=== PATIENT | male | born 1970 | race Hispanic/Latino ===

== ENCOUNTER 2020-12-17 08:24 | Day surgery (SDC) | payer SELFPAY ==
[2020-12-17] MEDS ORDERED: Ringers Lactate 1,000 ML IV ONE ×2 (08:55→10:49)
[2020-12-17] MEDS ORDERED: propofoL 200 MG/20 ML VIAL IV ONE (09:42)
[2020-12-17] MEDS ORDERED: MIDAZOLAM HCL 2 MG/2 ML INJ ONE (09:42)
[2020-12-17] MEDS ORDERED: LIDOCAINE 2% MPF 5 ML VIAL ONE (09:43)
[2020-12-17] MEDS ORDERED: FENTANYL CITR 100 MCG/2 ML ONE ×2 (09:43→10:09)
[2020-12-17] MEDS ORDERED: CEFAZOLIN/SWI 1gm 1 GM/10 ML SYR ONE (09:47)
--- NOTE | 2020-12-17 10:14 | P.BOP ---
Preoperative diagnosis: tender umbilical hernia Postoperative diagnosis: same Primary procedure: Open repair of tender umbilical hernia Avionics Test Technician: Silvina Licea) Estimated blood loss: <10cc Specimen: hernia sac Findings: umbilical hernia Anesthesia: General Complications: None Transferred to: Recovery Room Condition: Good
[2020-12-17] MEDS ORDERED: dexAMETHasone 10 MG/ML VIAL ONE (10:26)
[2020-12-17] MEDS ORDERED: KETOROLAC 30 MG/ML INJ ONE (10:26)
[2020-12-17] MEDS ORDERED: ONDANSETRON 4 MG/2 ML VIAL ONE ×2 (10:26→11:00)
[2020-12-17] MEDS: HYDROMORPHONE HCL 1 MG/ML INJ ONE ×2 (10:45→10:50)
[2020-12-17 12:34] VITALS: BP 133/82; TEMP 96.2; O2SAT 98
--- NOTE | 2020-12-17 20:52 | OP ---
Date of Procedure: 12/17/2020 Surgeon: Ari Martinez MD Preoperative Diagnoses: Periumbilical tenderness, periumbilical mass, periumbilical hernia, morbid o besity. Postoperative Diagnoses: Periumbilical tenderness, periumbilical mass, periumbilical hernia, morbid obesity, incarcerated umbilical hernia. Procedure: Open repair. Anesthesia: General plus local. Indications For Surgery: This is the case of a 50-year-old patient comes to us with periumbilical te nderness right at the center of the umbilical area with a lump in that region. The imaging did not s how properly the etiology of this pain. It felt like a hernia and could be a mass or cyst. The bene fits, alternatives, and risks of umbilical hernia repair or possible mass removal fully explained to the patient which include, but not limited to infection, bleeding, damage to adjacent structures, ane sthesia complication, recurrence, PA and even . He also understands this may not relieve any sy mptoms. He might need more than one surgical intervention. He understood, signed a consent. He und erstands also the importance of losing weight. He signed a consent. Procedure In Detail: The patient was brought to the operating room, placed in supine position. Anes thesia was done without complication. A time-out was called. Abdomen was prepped and draped in a st erile fashion. An incision was made in the periumbilical region after injecting local anesthetic. I ncision was carried down to deep subcutaneous tissue. He is morbidly obese, so is the deep umbilical area. At the end of that, we noticed the patient to have an umbilical sac. We disconnected umbilic al skin from umbilical sac. We removed the umbilical sac. We noticed to have a small amount of inca rcerated omentum in that area, but after removing some adhesions, we were able to reduce it after ful l inspection. There was a small defect in the fascia, so we clean the fascia edges. We proceeded to close the area with #1 Prolene in a gpdaol-dl-asqeo fashion. The area was irrigated. Subcutaneous tissue closed and umbilical area was put back together with a combination of 0 chromic and 3-0 chromi c. Steri-Strips placed over the area. The patient tolerated the procedure well. Hemostasis was obt ained before closure. The patient is awake to Recovery in stable condition. /MODL Voice ID: [id number] Report ID: [id number]
--- NOTE | 2020-12-17 20:58 | DS ---
Date of Discharge: 12/17/2020 Diagnoses: Umbilical hernia, morbid obesity. Procedure Performed: Open repair of umbilical hernia. Disposition: Home. Activity: As tolerated. No heavy lifting. Plan: Follow up in my office in 1 week. Call for appointment at [phone]. Keep area dry for 48 sudha rs, then may shower. Keep Steri-Strips intact. The patient was advised the importance of losing franck ght and also counseled about smoking cessation. TINO/SOL Voice ID: [id number] Report ID: [id number]
== END 2020-12-17 11:53 | disposition home or self-care (01) ==
LOC: OR 08:24
PROVIDERS: ATTEND Surgery
PROC: 0WQF0ZZ Repair Abdominal Wall, Open Approach (ICD-10-PCS; principal; 2020-12-17 10:30)
DX: K42.9 Umbilical hernia without obstruction or gangrene (principal); E66.01 Morbid (severe) obesity due to excess calories; Z20.822 Contact with and (suspected) exposure to COVID-19
CPT/HCPCS: 49587; 93005; 88302; U0003; J2704; J2250; J3010 ×2; J1100; J1170; J0690; J7120 ×2; J2405 ×2

== ENCOUNTER 2021-08-18 13:33 | Emergency (ER) | payer SELFPAY ==
--- NOTE | 2021-08-18 14:11 | ER ---
Nurse's Notes [facility] Name: Ti Dobbins Age: 51 yrs Sex: Male : 1970 Arrival Date: 08/18/2021 Time: 13:34 Bed Treatment Private MD: Diagnosis: Sciatica, left side Presentation: 08/18 13:51 Chief complaint: Patient states: Pain to L buttock that radiates down L leg that began ss yesterday. Denies injury. Coronavirus screen: Client denies travel out of the [place] in the last 14 days. Ebola Screen: Patient denies exposure to infectious person. Patient denies travel to an Ebola-affected area in the 21 days before illness onset. Initial Sepsis Screen: Does the patient meet any 2 criteria? No. Patient's initial sepsis screen is negative. Does the patient have a suspected source of infection? No. Patient's initial sepsis screen is negative. Risk Assessment: Do you want to hurt yourself or someone else? Patient reports no desire to harm self or others. Onset of symptoms was August 17, 2021. 13:51 Method Of Arrival: Ambulatory ss 13:51 Acuity: DENAE 4 ss Historical: - Allergies: 13:52 No Known Allergies; ss - Home Meds: 13:52 None [Active]; ss - PMHx: 13:52 Hypertensive disorder; ss - PSHx: 13:52 hernia repair; ss - Immunization history:: Client reports having NOT received the Covid vaccine. - Social history:: Smoking status: Patient reports the use of cigarette tobacco products, smokes one pack cigarettes per day. Screenin:11 Abuse screen: Denies threats or abuse. Denies injuries from another. Nutritional ss screening: No deficits noted. Tuberculosis screening: Never had TB. Fall Risk None identified. Assessment: 14:11 General: Appears in no apparent distress. comfortable, Behavior is calm, cooperative. ss Pain: Complains of pain in left gluteus weston Pain radiates to left leg Pain currently is 8 out of 10 on a pain scale. Pain began 1 day ago. Is continuous. Neuro: Level of Consciousness is awake, alert, obeys commands, Oriented to person, place, time, situation. Cardiovascular: Capillary refill < 3 seconds is brisk in bilateral fingers. Respiratory: Airway is patent Respiratory effort is even, unlabored, Respiratory pattern is regular, symmetrical. GI: No signs and/or symptoms were reported involving the gastrointestinal system. : No signs and/or symptoms were reported regarding the genitourinary system. Derm: Skin is intact, is healthy with good turgor, Skin is dry, Skin is pink, warm \T\ dry. normal. Musculoskeletal: Circulation, motion, and sensation intact. Range of motion: intact in all extremities, Swelling absent. Vital Signs: 13:52 BP 167 / 99; Pulse 84; Resp 18; Temp 97.4(TE); Pulse Ox 97% on R/A; Weight 122.47 kg; ss Height 5 ft. 4 in. (162.56 cm); Pain 8/10; 13:52 Body Mass Index 46.34 (122.47 kg, 162.56 cm) ss ED Course: 13:34 Patient arrived in ED. as 13:52 Triage completed. ss 13:52 Arm band placed on right wrist. ss 13:55 [facility] Dev[facility]-C [facility]. kb 13:55 Rubin Romero MD is Attending Physician. kb 14:11 Barbara Garcia, ESTEE is Primary Nurse. ss 14:11 Patient has correct armband on for positive identification. Bed in low position. Call ss light in reach. 14:11 No provider procedures requiring assistance completed. Patient did not have IV access ss during this emergency room visit. Administered Medications: No medications were administered Outcome: 14:10 Discharge ordered by . kb 14:11 Discharged to home ambulatory. ss 14:11 Condition: good 14:11 Discharge instructions given to patient, Instructed on discharge instructions, follow up and referral plans. medication usage, Demonstrated understanding of instructions, follow-up care, medications, Prescriptions given X 2. 14:19 Patient left the ED. ss Signatures: Lauren Devries FNP-C FNP-Mariposa Trejo as Barbara Garcia, ESTEE RN ss
--- NOTE | 2021-08-18 14:11 | EDPHYS ---
Physician Documentation [facility] Name: Ti Dobbins Age: 51 yrs Sex: Male : 1970 Arrival Date: 08/18/2021 Time: 13:34 Bed Treatment Private MD: ED Physician Rubin Romero HPI: 08/18 15:09 This 51 yrs old Male presents to ER via Ambulatory with complaints of Leg Pain.kb 15:09 The patient presents with pain, tenderness. The complaints affect the left gluteus kb weston. Context: The problem was sustained at home, resulted from an unknown cause, the patient can fully bear weight, the patient is able to ambulate. Onset: The symptoms/episode began/occurred yesterday. Modifying factors: The symptoms are alleviated by nothing. the symptoms are aggravated by nothing. Associated signs and symptoms: The patient has no apparent associated signs or symptoms. Treatment prior to arrival includes: no previous treatment. Severity of symptoms: At their worst the symptoms were moderate, in the emergency department the symptoms are unchanged. The patient has not experienced similar symptoms in the past. The patient has not recently seen a physician. Pt reports pain to center of left buttock that radiates down back of left leg. States the pain started upon waking yesterday afternoon.. Historical: - Allergies: 13:52 No Known Allergies; ss - Home Meds: 13:52 None [Active]; ss - PMHx: 13:52 Hypertensive disorder; ss - PSHx: 13:52 hernia repair; ss - Immunization history:: Client reports having NOT received the Covid vaccine. - Social history:: Smoking status: Patient reports the use of cigarette tobacco products, smokes one pack cigarettes per day. ROS: 15:08 Constitutional: Negative for fever, chills, and weight loss. kb 15:08 MS/extremity: Positive for pain, of the left gluteus weston. 15:08 All other systems are negative. Exam: 15:08 Constitutional: This is a well developed, well nourished patient who is awake, alert, kb and in no acute distress. Head/Face: Normocephalic, atraumatic. ENT: Moist Mucous membranes Respiratory: Respirations even and unlabored. No increased work of breathing, no retractions or nasal flaring. Skin: Warm, dry with normal turgor. Normal color. Neuro: Awake and alert, GCS 15, oriented to person, place, time, and situation. Moves all extremities. Normal gait. Psych: Awake, alert, with orientation to person, place and time. Behavior, mood, and affect are within normal limits. 15:08 Musculoskeletal/extremity: Extremities: grossly normal except: noted in the left gluteus weston: pain, tenderness, ROM: intact in all extremities, Circulation is intact in all extremities. Sensation intact. Weight bearing: able to fully bear weight. Vital Signs: 13:52 BP 167 / 99; Pulse 84; Resp 18; Temp 97.4(TE); Pulse Ox 97% on R/A; Weight 122.47 kg; ss Height 5 ft. 4 in. (162.56 cm); Pain 8/10; 13:52 Body Mass Index 46.34 (122.47 kg, 162.56 cm) ss MDM: 13:55 Patient medically screened. kb 15:08 Data reviewed: vital signs, nurses notes. Data interpreted: Pulse oximetry: on room air kb is 97 %. Interpretation: normal. Counseling: I had a detailed discussion with the patient and/or guardian regarding: the historical points, exam findings, and any diagnostic results supporting the discharge/admit diagnosis, the need for outpatient follow up, a family practitioner, to return to the emergency department if symptoms worsen or persist or if there are any questions or concerns that arise at home. Administered Medications: No medications were administered Disposition: 15:28 Co-signature as Attending Physician, Rubin Romero MD. rn Disposition Summary: 08/18/21 14:10 Discharge Ordered Location: Home kb Condition: Stable kb Diagnosis - Sciatica, left side kb Followup: kb - With: Emergency Department - When: As needed - Reason: Worsening of condition Followup: kb - With: Private Physician - When: 2 - 3 days - Reason: Recheck today's complaints, Continuance of care, Re-evaluation by your physician Discharge Instructions: - Discharge Summary Sheet kb - Sciatica, [id number]-zw-Ojvz kb Forms: - Medication Reconciliation Form kb - Thank You Letter kb - Antibiotic Education kb - Prescription Opioid Use kb - Work release form ss Prescriptions: - Prednisone 20 mg Oral Tablet - take 1 tablet by ORAL route once daily for 5 days; 5 tablet; Refills: 0, kb Product Selection Permitted - Cyclobenzaprine 10 mg Oral Tablet - take 1 tablet by ORAL route every 8 hours As needed; 30 tablet; Refills: 0, kb Product Selection Permitted Signatures: Lauren Devries, [employer]AN[employer]-Rubin Mitchell MD MD rn Barbara Garcia RN RN ss
[2021-08-18 14:51] VITALS: BP 167/99; TEMP 97.4; O2SAT 97
== END 2021-08-18 14:19 | disposition home or self-care (01) ==
LOC: ER 13:33
DX: M54.32 Sciatica, left side (principal); I10 Essential (primary) hypertension; F17.210 Nicotine dependence, cigarettes, uncomplicated
CPT/HCPCS: 99282

== ENCOUNTER 2025-06-27 21:13 | Emergency (ER) | payer BC, OTHER, SELFPAY ==
--- OUTSIDE RECORDS SUMMARY | 2025-06-27 21:16 | XMS REPORT | Continuity of Care Document ---
Author Name Unknown Address [address] [facility] [address] [place] [address] [facility] Address [address] [facility] [facility] [place] [address] Care Team Providers Care Special Services Director Name Role Phone UNIT, CHAYITO Primary Care Physician Unavailab JABIER Riddle Attending Clinician Unavailable JABIER COKER Attending Clinician Unavailable Marie Salmeron PA-C Attending Clinician [phone] Bibiana Fabian Attending Clinician Amanda Neely Attending Clinician Unavail able JABIER COKER Admitting Clinician Unavailable KARO YANCEY Admitting Clinician Unavailable Payers Payer Name Policy Type Policy Number Effective Date Expirati on Date Source HIM [facility] [employer] O [id number] 2024 00:00:00 TDCJ [id number] 2013 00:00:00 2018 00:00:00 Allergies, Adverse Reactions, Alerts Allergy Name Allergy Type Status Severity Reaction(s) Onset Date Inactive Date Treating Clinician Comments Source No Known Drug Allergie s DA Active U 05-02 00:00: 00 MAYELIN schuler [facility] NO KNOWN ALLERGIE S Drug Class Active [facility] Social History Social Habit Start Date Stop Date Quantity Comments Source Sexual orientation [facility] Alcoholic beverage intake 2013-08-02 00:00:00 2013-08-02 00:00:00 Current non-drinker of alcohol (finding) [facility] Tobacco Comment 2013-04-01 00:00:00 2013-04-01 00:00:00 marijuana [facility] Cigarettes smoked current (pack per day) - Reported 2013-04-01 00:00:00 2013-04-01 00:00:00 [facility] Cigarette pack-years 2013-04-01 00:00:00 2013-04-01 00:00:00 [facility] Tobacco use and exposure 2013-04-01 00:00:00 2013-04-01 00:00:00 Former smokeless tobacco user [facility] History of tobacco use 1984-04-01 00:00:00 2004-04-01 00:00:00 User of smokeless tobacco [facility] Sex assigned at 1970 00:00:00 1970 00:00:00 [facility] Smoking Status Start Date Stop Date Source Ex-smoker 2013-04-01 00:00:00 2013-04-01 00:00:00 [facility] Medications Ordered Medication Name Filled Medication Name Start Date Stop Date Current Medication? Ordering Clinician Indication Dosage Frequency Signature (SIG) Comments Components Source traMADoL (ULTRAM) tablet 50 mg 2024-09 16:30: 00 06-20 15:53 :00 No 50mg 50 mg, Oral, ONCE NOW, 1 dose, On Thu06/20/25 at 1130, Routine [facility] benzonatate 100 mg capsule 2024-09 00:00: 00 Yes [id number] 100mg Take 1 capsule by mouth 3 times daily as needed for Cough. [facility] traMADoL 50 mg tablet 2024-09 00:00: 00 06-28 04:59 :00 Yes [id number] 50mg Take 1 tablet by mouth every 8 hours as needed for Pain (scale 7-10) for up to 7 days. [facility] flunisolide (NASALIDE) 25 mcg (0.025 %) [place] nasal spray 10-18 00:00: 00 Yes 2{spray } Use 2 Sprays in each nostril every morning and evening. [facility] ibuprofen (MOTRIN) 400 mg tablet 2012-09 00:00: 00 Yes 400mg Take 1 Tab by mouth every 6 (six) hours as needed (for dhoulder pain). [facility] Vital Signs Vital Name Observation Time Observation Value Comments S ource Systolic blood pressure 2025-06-20 17:39:00 150 mm[Hg] [facility] Diastolic blood pressure 2025-06-20 17:39:00 98 mm[Hg] [facility] Heart rate 2025-06-20 17:39:00 75 /min [facility] Body temperature 2025-06-20 17:39:00 36.83 Luanne [facility] Respiratory rate 2025-06-20 17:39:00 18 /min [facility] Oxygen saturation in Arterial blood by Pulse oximetry 2025-06-20 17:39:00 99 /min [facility] Body height 2025-06-20 14:48:00 165.1 cm [facility] Body weight 2025-06-20 14:48:00 124.286 kg [facility] BMI 2025-06-20 14:48:00 45.60 kg/m2 [facility] Procedures Procedure Date / Time Performed Performing Clinicia n Source XR RIBS 3 VW RIGHT 2025-06-20 15:54:24 Jabier Coker [facility] Encounters Start Date/Time End Date/Time Encounter Type Admission Type Attending Clinicians Care Facility Care Department Encounter ID Source 2025-06-20 09:50:00 2025-06-20 12:40:00 Emergency X BOLIVAR, JABIER COKER, JABIER [facility] ERT [id number] [facility] 2024-12-19 00:00:00 2025-03-22 11:49:01 Telephone Marie Salmeron [facility] [id number] [facility] 2025-02-24 00:00:00 2025-02-24 08:18:38 Letter (Out) Bibiana Fabian [facility] ([place]) [id number] [facility] 2021-10-11 10:50:00 2021-10-11 10:50:00 Inpatient ANA Neely Amanda [facility] RADI [id number] [address] [facility] [place] 2014-05-30 11:00:00 2014-05-30 11:00:00 Outpatient R [facility] [id number] [facility] Results Test Description Test Time Test Comments Results Resul t Comments Source XR Ribs 3 vw right 7 17:23:31 ORDERING PHYSICIAN: JABIER COKER CLINICAL HISTORY:cough, R rib pain TECHNIQUE:PA chest radiograph. Multiple AP and oblique views of right ribs. COMPARISON:None. FINDINGS:Normal lung volumes. No focal pulmonary consolidation, pleural effusion orpneumothorax. Heart size within normal limits. Visualized bones areunremarkable. No signs of acute or displaced rib fracture. Normalappearance of bilateral clavicles, scapula or partially included proximalhumerus. [facility] - MRI L-SPINE W/O CONT 2021-09-15 8 11:56:00 [facility] 1970 Sex: M FAX: Amanda Neely [phone] Camps: PM St: REG Name: LOLA DOBBINS [facility] : 1970 Age/S: 51/M [address] Unit #: [id number] Loc: [place] [address] Phys: Amanda Neely [employer] Acct: [id number] Dis Date: Status: REG CLI PHONE #: [phone] Exam Date: 10/11/2021 1143 FAX #: Reason: LOW BACK PAIN EXAMS: CPT: [id number] MRI L-SPINE W/O CONT [id number] EXAM: MRI LUMBAR SPINE WITHOUT CONTRAST INDICATION: LOW BACK PAIN COMPARISON: None available TECHNIQUE: Multiplanar, multisequence noncontrast MR imaging of the lumbar spine. IV contrast: None. FINDINGS: There are 5 nonrib-bearing lumbar vertebra. 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 I The vertebral bodies are normal in height, alignment and signal intensity. The facet joints and spinous processes are in normal alignment. There is diffuse facet joint arthropathy. There is loss of the intervertebral disc height throughout the lumbar spine. The conus medullaris terminates at T12 and is normal in signal intensity and caliber. The cauda equina is normal. The posterior paraspinal soft tissues are normal. Imaged portion of the abdomen is unremarkable. INDIVIDUAL LEVELS: L1-L2: Minimal disc bulge measuring 2 mm. Mild spinal canal stenosis. No neuroforaminal stenosis. L2-L3: Mild spinal canal stenosis. Facet joint hypertrophy. No neuroforaminal stenosis. L3-L4: Disc bulge measuring 5 mm. Moderate spinal canal stenosis. Facet joint hypertrophy with moderate neuroforaminal stenosis bilaterally. L4-L5: Disc bulge measuring 3 mm. Moderate spinal canal stenosis with crowding of the cauda equina. Facet joint hypertrophy with moderate neuroforaminal stenosis bilaterally. L5-S1: Disc bulge measuring 4 mm. Mild spinal canal stenosis. Facet joint hypertrophy with moderate neuroforaminal stenosis bilaterally. 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 Congenitally shortened pedicles which accentuates the spinal canal stenosis. Moderate spinal canal stenosis at L3-L4 and L4-L5. Moderate neuroforaminal stenosis at L3-L4 through L5-S1 bilaterally. LOCATION: B2 at 1156 Reported and signed by: Nicole Dennis M.D. CC: Amanda Neely [employer] Technologist: Ward Mcgrath, RT(R)(MR) Transcribed Date/Time/By: 10/11/2021 (1156) :[email or web address] Orig Print D/T: S: 10/11/2021 (6460) PAGE 2 Signed Report Notes Date/Time Note Provider Source 2025-06-20 12:40:28 Patient is awake and alert, oriented x4. Speech is clear and appropriate. Respirations even and unlabored, no distress. Ambulatory with steady gait. Reviewed discharge instructions, follow-up care, and RX with patient, verbalizes understanding. Xiomara Richey RN [facility] 2025-06-20 09:47:20 Patient states: "I have this sinus drainage and it causes me to cough. Well last Thursday I coughed really hard and I woke up Thursday with pain in my right side. It's just getting worse" Pmhx: HTN, Kourtney Segura RN [facility] 2024-12-19 15:43:20 Left message for pt to call us back To schedule Luli Escobedo [facility] 2024-12-19 15:34:51 Patient is not a pedi patient, can PSS assist in contacting patient to see if he would like to be seen with [facility] Med. Amy Ugarte [facility] 2024-12-19 13:15:20 This is a 54 year old male. Wrong clinic. Marie is in [facility] she only sees pediatric pts. Ирина Sr [facility] 2024-12-19 10:36:39 Please assist , forwarding to correct pool. Donte Ortega [facility] 2024-12-19 10:36:03 This is [facility] PCP/URGENT CARE, please not [facility] Pedi is different will forward. [facility] 2024-12-19 10:02:38 Lola Dobbins is a 54 year old male Toshia with [employer] is calling inquiring to schedule a patient with provider Marie Salmeron PA-C Please advise. Toshia contact: [phone] Angela Henderson [facility]
[2025-06-27 21:48] LABS: Absolute Lymphocytes (CBC) 1.7 K/uL (0.7-4.9); Hematocrit 45.0 % (39.6-49.0); Hemoglobin 15.6 g/dL (13.6-17.9); MCH 33.0 pg (27.0-35.0); MCHC 34.7 g/dL (32.0-36.0); MCV 95.4 fL (80-100); MPV 8.6 fL (7.6-11.3); Nucleated RBC Absolute Count 0.0 (0-0); Nucleated Red Blood Cells % 0.2 % (0-0); RBC Red Blood Cell Count 4.71 M/uL (4.33-5.43); White Blood Count 8.80 thou/uL (4.3-10.9)
[2025-06-27 22:03] LABS: PT Prothrombin Time 10.6 SECONDS (10-13.0); PTT, Activated Partial Thromb 34.5 SECONDS (27.2-37.4); Protime INR 0.94
[2025-06-27 22:11] LABS: ALT/SGPT 24.0 U/L (16-61); AST/SGOT 22.0 U/L (15-37); Albumin 3.7 g/dL (3.4-5.0); Albumin/Globulin Ratio 1.2 (1.1-1.8); Alkaline Phosphatase 92.0 U/L (45-117); Anion Gap 9.8 mEq/L (5.0-15.0); BUN Blood Urea Nitrogen 16.0 mg/dL (7-18); Globulin 3.2 g/dL (2.3-3.5); Glucose Level 121.0 mg/dL (74-106); Potassium 3.8 mEq/L (3.5-5.1)
--- NOTE | 2025-06-27 22:14 | EDPHYS ---
Physician Documentation [facility] Name: Ti Dobbins Age: 55 yrs Sex: Male : 1970 Arrival Date: 06/27/2025 Time: 21:13 Bed 7 Private MD: ED Physician All Slater HPI: 06/27 22:15 This 55 yrs old Male presents to ER via Ambulatory with complaints of Bruising.tt7 22:15 Patient reports that for the past 1 to 2 weeks he was dealing with an upper respiratory tt7 infection, had a significant amount of nonproductive coughing, was dealing with some right sided flank pain and soreness worse after the coughing. Historical: - Allergies: 21:30 No Known Allergies; dd2 - PMHx: 21:30 Hypertensive disorder; Cerebrovascular accident; dd2 - PSHx: 21:30 hernia repair; dd2 - Immunization history:: Adult Immunizations up to date. - Infectious Disease History:: Denies. - Social history:: Smoking status: Patient reports the use of cigarette tobacco products, smokes one pack cigarettes per day. ROS: 22:57 Constitutional: negative for fever. Cardiovascular: negative for chest pain. tt7 Respiratory: negative for shortness of breath. Abdomen/GI: negative for abdominal pain, nausea, vomiting, diarrhea. MS/Extremity: negative for injury and deformity. Skin: negative for rash. Neuro: negative for focal weakness. Exam: 22:59 Constitutional: vital signs reviewed, well appearing. Head/Face: normocephalic, tt7 atraumatic. Eyes: no conjunctival injection, anicteric sclerae. ENT: mucus membranes moist. Neck: trachea midline, no JVD, no meningismus. Chest/axilla: normal chest wall appearance and motion, nontender, no crepitus. Cardiovascular: regular rate and rhythm, no murmurs, no rubs, no lower extremity edema. Respiratory: normal respiratory effort, no accessory muscle use, lungs CTAB. Abdomen/GI: soft, nondistended, nontender, no guarding or rebound, negative Mcduffie's sign, no McBurney point tenderness. Back: normal ROM. Skin: warm, dry, intact, large area of ecchymosis to the right lower quadrant and right lower flank, no rash, no tenderness MS/ Extremity: normal ROM of extremities, no gross deformities. Neuro: alert and oriented with appropriate mental status, normal speech, follows commands, no focal neurologic deficits. Psych: appropriate mood and affect. Vital Signs: 21:28 BP 163 / 74; Pulse 48; Resp 16; Temp 98.4; Pulse Ox 96% on R/A; Weight 124.28 kg (R); dd2 22:04 BP 150 / 97; Pulse 81; Resp 18; Pulse Ox 95% on R/A; nh2 22:16 BP 132 / 84; Pulse 86; Resp 18; Pulse Ox 94% on R/A; km10 MDM: 21:29 Medical Screening Exam initiated tt7 22:57 Differential Diagnosis Ecchymosis, muscle strain, muscle tear, coagulopathy, tt7 thrombocytopenia. Data reviewed: vital signs, nurses notes, lab test result(s). ED course: Patient has bruising to the right flank after having an upper respiratory infection associated with lots of forceful coughing, upper respiratory symptoms has resolved, came in for evaluation of the bruising, his vital signs are stable and physical exam reassuring, ecchymosis along the right lower quadrant and flank consistent with bruising due to muscle strain or injury likely sustained from forceful coughing, no pain on deep palpation, patient not having any pain at this time, standard laboratory studies ordered to assess for coagulopathy, patient does not take any anticoagulants, overall workup reassuring, no thrombocytopenia, no significant abnormalities to coag studies, after completion of the patient's emergency department evaluation, I do not suspect a life-threatening or disabling process. Patient is medically stable and not in need of emergent medical intervention. I had a detailed discussion with the patient regarding the historical points, exam findings, emergency department evaluation, diagnostic results, and the discharge diagnosis. I instructed the patient on outpatient management of their condition. I discussed the need for outpatient follow-up with a primary care physician. I informed the patient on return precautions, including the need to return to the ED if symptoms do not improve, worsen, or if there are any questions or concerns that arise at home. The patient was discharged in stable condition. 06/27 21:36 Order name: CBC with Diff; Complete Time: 21:56 tt7 06/27 21:36 Order name: CMP; Complete Time: 22:11 tt7 06/27 21:36 Order name: Ptt, Activated; Complete Time: 22:11 tt7 06/27 21:36 Order name: PT-INR; Complete Time: 22:11 tt7 Administered Medications: No medications were administered Disposition: 22:59 Co-signature as Attending Physician, All Slater DO. tt7 Disposition Summary: 06/27/25 22:13 Discharge Ordered Notes: Location: Home tt7 Problem: new tt7 Symptoms: are unchanged tt7 Condition: Stable tt7 Diagnosis - RIGHT FLANK ECCHYMOSIS tt7 Followup: tt7 - With: Emergency Department - When: As needed - Reason: Followup: tt7 - With: Private Physician - When: 1 - 2 days - Reason: Recheck today's complaints, Re-evaluation by your physician Discharge Instructions: - Discharge Summary Sheet tt7 - Contusion, [id number] tt7 Forms: - Medication Reconciliation Form tt7 - Antibiotic Education tt7 - Prescription Opioid Use tt7 - Patient Portal Instructions tt7 - Leadership Thank You Letter tt7 Signatures: Dispatcher [employer] TIARRA BELLO RN RN dd2 Snow Pepper RN RN km10 All Slater DO DO tt7 Corrections: (The following items were deleted from the chart) 22:57 22:15 Patient reports that for the past 1 to 2 weeks he was dealing with an upper tt7 respiratory infection, had a significant amount of nonproductive coughing, was dealing with some right sided flank pain and soreness worse after the coughing,. tt7
--- NOTE | 2025-06-27 22:14 | ER ---
Nurse's Notes [facility] Name: Ti Dobbins Age: 55 yrs Sex: Male : 1970 Arrival Date: 06/27/2025 Time: 21:13 Bed 7 Private MD: Diagnosis: RIGHT FLANK ECCHYMOSIS Presentation: 06/27 21:28 Chief complaint: Patient states: COUGH 2 WEEKS AGO CAUSED RT SIDE PAIN. WENT TO THE ER dd2 LAST WEEK FOR XRAYS, SENT HOME. PT REPORTS NOTICING PURPLE BRUISING ON RT SIDE AND RT LOWER STOMACH. REPORTS PAIN TO RT LOWER STOMACH AND RT FLANK. Coronavirus screen: At this time, the client does not indicate any symptoms associated with coronavirus-19. Ebola Screen: No symptoms or risks identified at this time. Initial Sepsis Screen: Does the patient meet any 2 criteria? No. Patient's initial sepsis screen is negative. Does the patient have a suspected source of infection? No. Patient's initial sepsis screen is negative. Risk Assessment: Do you want to hurt yourself or someone else? Patient reports no desire to harm self or others. Onset of symptoms was June 24, 2025. 21:28 Method Of Arrival: Ambulatory dd2 21:28 Acuity: DENAE 3 dd2 Triage Assessment: 21:30 General: Appears in no apparent distress. uncomfortable, Behavior is calm, cooperative, dd2 appropriate for age. Pain: Complains of pain in anterior aspect of right lateral abdomen and right lower quadrant. Derm: Bruising that is dark purple, on anterior aspect of right lateral abdomen, posterior aspect of right lateral abdomen and right lower quadrant. Historical: - Allergies: 21:30 No Known Allergies; dd2 - PMHx: 21:30 Hypertensive disorder; Cerebrovascular accident; dd2 - PSHx: 21:30 hernia repair; dd2 - Immunization history:: Adult Immunizations up to date. - Infectious Disease History:: Denies. - Social history:: Smoking status: Patient reports the use of cigarette tobacco products, smokes one pack cigarettes per day. Screenin:34 [facility] ED Fall Risk Assessment (Adult) History of falling in the last 3 months, km10 including since admission No falls in past 3 months (0 pts) Confusion or Disorientation No (0 pts) Intoxicated or Sedated No (0 pts) Impaired Gait No (0 pts) Mobility Assist Device Used No (0 pt) Altered Elimination No (0 pt) Score/Fall Risk Level 0 - 2 = Low Risk Oriented to surroundings, Maintained a safe environment. Abuse screen: Denies threats or abuse. Denies injuries from another. Nutritional screening: No deficits noted. Tuberculosis screening: No symptoms or risk factors identified. Assessment: 21:35 General: Appears in no apparent distress. Pain: Complains of pain in posterior aspect km10 of right lateral abdomen and abdomen and right lower quadrant and anterior aspect of right lateral abdomen. Neuro: Level of Consciousness is awake, alert, obeys commands, Oriented to person, place, time, situation, Appropriate for age Gait is steady. Cardiovascular: Denies chest pain. Respiratory: Reports cough that is since 5 days. Derm: Bruising that is dark purple. Musculoskeletal: Reports pain in posterior aspect of right lateral abdomen and abdomen and right lower quadrant and anterior aspect of right lateral abdomen. 22:12 Reassessment: Patient and/or family updated on plan of care and expected duration. Pain nh2 level reassessed. Patient denies pain at this time. Neuro: Level of Consciousness is awake, alert, Oriented to person, place, time, situation. Cardiovascular: Patient's skin is warm and dry. Respiratory: Airway is patent Respiratory effort is even, unlabored, Breath sounds are clear bilaterally. 22:16 Reassessment: Patient appears in no apparent distress at this time. No changes from km10 previously documented assessment. Patient and/or family updated on plan of care and expected duration. Pain level reassessed. Patient is alert, oriented x 3, equal unlabored respirations, skin warm/dry/pink. Vital Signs: 21:28 BP 163 / 74; Pulse 48; Resp 16; Temp 98.4; Pulse Ox 96% on R/A; Weight 124.28 kg (R); dd2 22:04 BP 150 / 97; Pulse 81; Resp 18; Pulse Ox 95% on R/A; nh2 22:16 BP 132 / 84; Pulse 86; Resp 18; Pulse Ox 94% on R/A; km10 ED Course: 21:17 Patient arrived in ED. mr 21:22 Snow Pepper, ESTEE is Primary Nurse. km10 21:29 All Slater DO is Attending Physician. tt7 21:30 Triage completed. dd2 21:30 Arm band placed on right wrist. dd2 21:30 Patient has correct armband on for positive identification. Bed in low position. Call km10 light in reach. Side rails up X 1. Provided Education on: plan of care. Client placed on continuous cardiac and pulse oximetry monitoring. NIBP monitoring applied. 21:39 No provider procedures requiring assistance completed. Inserted saline lock: 20 gauge km10 in right antecubital area, using aseptic technique. Blood collected. Flushed with 10 mL NS. 21:40 CBC with Diff Sent. km10 21:40 CMP Sent. km10 21:40 Ptt, Activated Sent. km10 21:40 PT-INR Sent. km10 22:16 IV discontinued, intact, bleeding controlled, No redness/swelling at site. Pressure km10 dressing applied. Administered Medications: No medications were administered Medication: 22:17 VIS not applicable for this client. km10 Outcome: 22:13 Discharge ordered by MD. tt7 22:16 Discharged to home ambulatory, km10 22:16 Condition: stable 22:16 Discharge instructions given to patient, Instructed on discharge instructions, follow up and referral plans. Demonstrated understanding of instructions, follow-up care, 22:21 Patient left the ED. km10 Signatures: Danna Harper, Reg Reg mr TIARRA MIRANDA, RN RN dd2 Jaya Holt Jr, RN RN nh2 Snow Pepper, ESTEE RN km10 All Slater DO DO tt7
[2025-06-28 05:24] VITALS: BP 132/84; O2SAT 94
[2025-06-28 05:26] VITALS: TEMP 98.4
== END 2025-06-27 22:21 | disposition home or self-care (01) ==
LOC: ER 21:13
DX: R23.3 Spontaneous ecchymoses (principal); F17.210 Nicotine dependence, cigarettes, uncomplicated
CPT/HCPCS: 36415; 80053; 85025; 85610; 85730; 99284